=== PATIENT | female | born 1990 | race African-American/Black ===

== ENCOUNTER 2020-01-03 14:15 | Emergency (ER) | payer OTHER, SELFPAY ==
[2020-01-03] VITALS (9 sets, daily range): BP systolic 114–136; BP diastolic 75–84; PULSE 82–89; RESP 16–18; TEMP 36.8; O2SAT 97–100
[2020-01-03] MEDS: KETOROLAC 30 MG/ML VIAL (*BKC) IV PUSH (15:14)
[2020-01-03 15:15] LABS: Anion Gap 6 mmol/L (8-16); Blood Urea Nitrogen 15 mg/dL (7-17); Calcium 8.7 mg/dL (8.4-10.2); Carbon Dioxide 21 mmol/L (22-30); Chloride 112 mmol/L (98-107); Estimated CRCL calculation 105 ml/min; Estimated Glomerular Filt Rate > 60; Glucose 100 mg/dL (65-105); Potassium 3.4 mmol/L (3.4-5.0); Sodium 139 mmol/L (137-145)
--- NOTE | 2020-01-03 15:52 | ED.BACK ---
HPI - Back Pain/Injury General Chief Complaint: Back Pain/Injury Stated Complaint: shoulder pain, difficulty turning head, headaches Time Seen by Provider: 01/03/20 14:32 History of Present Illness HPI Narrative: Patient is a 29-year-old female with history of idiopathic intracranial hypertension who presents to the ER with some left-sided back pain. Began over the last week worse with twisting and turning of the head. No fevers or chills or sweats. No numbness or tingling to upper or lower extremities. Patient reports chronic headaches that are not changed. She takes her acetazolamide daily but has started some of her other headache medications to the discomfort to no avail. No known trauma. Has not tried any Tylenol or ibuprofen. She is concerned that her electrolytes could be out of balance. Related Data Home Medications Medication Instructions Recorded Confirmed acetazolamide PO DAILY 01/03/20 amitriptyline 25 mg PO HS 01/03/20 01/03/20 calcium carbonate-vitamin D2 tablet PO 01/03/20 [Calcium 500 with Vitamin D2] topiramate 25 mg PO DAILY 01/03/20 01/03/20 Allergies Allergy/AdvReac Type Severity Reaction Status Date / Time No Known Allergies Allergy Verified 01/03/20 14:26 Review of Systems Constitutional: Constitutional: Denies chills, Denies fever(s) and Denies weakness ENT: Denies nasal congestion and Denies sore throat Musculoskeletal: Musculoskeletal: Reports back pain, Denies arthralgias and Reports muscle cramps Neurologic: Denies dizziness, Reports headache(s), Denies focal weakness and Denies numbness PMFSH Past Medical History Medical History (Updated 01/03/20 @ 15:58 by Alex Farmer MD) Idiopathic intracranial hypertension Surgical History Surgical History (Updated 01/03/20 @ 15:55 by Alex Farmer MD) No pertinent past surgical history Exam Narrative: Exam Narrative: GENERAL: Well-appearing, well-nourished, and in no acute distress. HEAD: Normocephalic, atraumatic. EYES: PERRL and EOMI. NECK: Mild tenderness over the left trapezius musculature as well as the paraspinal muscles of the low left lower cervical spine. No midline tenderness. Range of motion intact but with mild discomfort when turning to the left side. No meningismus. CHEST: Clear to auscultation. No respiratory distress. HEART: Regular rate and rhythm. Normal peripheral pulses. EXTREMITIES: Normal range of motion. No edema. Back: No midline tenderness of the thoracic or lumbar spine. There is left-sided paraspinal muscular tenderness through the thoracic region. NEURO: Alert and oriented x3. Course Course Emergency Course: Pain reports significant improvement in pain with Toradol. Discharge home with anti-inflammatories muscle relaxers. Vital Signs Vital signs: Vital Signs Temperature 98.2 F 01/03/20 14:22 Pulse Rate 89 01/03/20 14:22 Respiratory Rate 16 01/03/20 14:22 Blood Pressure 136/75 01/03/20 14:22 Pulse Oximetry 100 01/03/20 14:22 Temperature 98.2 F 01/03/20 14:22 Pulse Rate 89 01/03/20 14:22 Respiratory Rate 16 01/03/20 14:22 Blood Pressure 114/84 01/03/20 14:31 Pulse Oximetry 99 01/03/20 15:15 MDM - Back Pain/Injury Lab Data Result diagrams: 01/03/20 14:55 01/03/20 14:55 Labs: Lab Results 01/03/20 Range/Units 14:55 Sodium 139 (137-145) mmol/L Potassium 3.4 (3.4-5.0) mmol/L Chloride 112 H (98-107) mmol/L Carbon Dioxide 21 L (22-30) mmol/L Anion Gap 6 L (8-16) mmol/L BUN 15 (7-17) mg/dL Creatinine 0.80 (0.7-1.0) mg/dL Estim Creat Clear Calc 105 ml/min Estimated GFR > 60 (59 - ) Glucose 100 (65-105) mg/dL Calcium 8.7 (8.4-10.2) mg/dL Discharge Plan Discharge Clinical Impression: Muscle strain of upper back, Cervical muscle strain Patient Disposition: Home, Self-Care Condition: Stable Instructions: Cervical Strain (ED), Thoracic Back Strain (ED) Additi
== END 2020-01-03 16:22 | disposition home or self-care (01) ==
PROVIDERS: Emergency Provider Emergency Medicine
DX: S29.012A Strain of muscle and tendon of back wall of thorax, initial encounter (principal); S16.1XXA Strain of muscle, fascia and tendon at neck level, initial encounter; G93.2 Benign intracranial hypertension; X58.XXXA Exposure to other specified factors, initial encounter
CPT/HCPCS: 36415; 80048; 96374; 99284; J1885